=== PATIENT | male | born 1930 ===

== ENCOUNTER 2016-12-30 07:10 | Day surgery (SDC) | payer MEDICARE, OTHER ==
[2016-12-27 09:20] VITALS: BMI 24.7
[2016-12-30] MEDS ORDERED: Iodixanol 320 MG/ML 200 ML BOTTLE IV ONE (07:47)
[2016-12-30] MEDS ORDERED: Iodixanol 320 MG/ML 100 ML BOTTLE IV ONE (07:47)
[2016-12-30] MEDS ORDERED: Midazolam 2 MG/2 ML VIAL ONE (10:02)
[2016-12-30] MEDS ORDERED: Metoprolol 1 mg/ml Inj IVP ONE (10:23)
--- NOTE | 2016-12-30 13:51 | CP.SDSHP ---
Same Day Surgery H & P - History Proposed Procedure: see H and P from office. no changes. - Allergies Allergies: Allergies Penicillins Allergy (Intermediate, Verified 12/27/16 09:18) RASH - Physical Exam Vital Signs: Vital Signs 12/30/16 07:19 Temperature 97.1 F L Pulse Rate 72 Respiratory 18 Rate Blood Pressure 146/62 O2 Sat by Pulse 95 Oximetry Short Stay Discharge - Short Stay Discharge Admitting Diagnosis/Reason for Visit: RULE OUT PVD Disposition: HOME/ ROUTINE
[2016-12-30] MEDS ORDERED: Sodium Chloride 0.9% 500 ML IV SCH (14:00)
[2016-12-30] MEDS ORDERED: Sodium Chloride 0.45% 1,000 ML IV SCH (14:00)
--- NOTE | 2016-12-30 16:47 | OP ---
PROCEDURE DATE: 12/30/2016 PERFORMING PHYSICIAN: Breanne Chairez MD REFERRING PHYSICIAN: Orly Churchill DPM. PROCEDURE PERFORMED: Retrograde access right common femoral artery, selective catheter placement inf rarenal abdominal aorta, abdominal aortography with bilateral iliofemoral runoff, bilateral lower ext remity angiography. INDICATIONS: Claudication. COMPLICATIONS: None. HISTORY: As follows: The patient is an 86-year-old male with a past medical history of hypertension , hypercholesterolemia, coronary artery disease and peripheral vascular disease, who has claudication involving the left lower extremity. The patient is referred for peripheral angiography due to abnor mal ankle brachial index. DESCRIPTION OF PROCEDURE: After obtaining informed consent, the patient was prepped and draped in [facility] sterile fashion. The right groin was anesthetized with 2% lidocaine solution. A 5-Luxembourgish sheath was inserted into the right common femoral artery via modified Seldinger technique. A catheter was positioned in the infrarenal abdominal aorta. Abdominal aortography was performed. All catheters we re then removed and manual pressure was applied to achieve hemostasis. FINDINGS: The infrarenal abdominal aorta is free of aneurysm or dissection. Bilateral renal arterie s arise normally. The patient has extensive eccentric calcification in the iliofemoral system. Ther e is a 40% stenosis of the right common iliac artery. Left common iliac artery has a 50% stenosis. The external iliac arteries have diffuse disease. Eccentric calcification is noted throughout the pr ofunda and superficial femoral arteries. These vessels have diffuse atherosclerosis, but are nonobst ructive. The patient has 2-vessel runoff via the anterior tibial and the posterior tibial artery riana aterally. CONCLUSION: Mild to moderate diffuse peripheral vascular disease. PLAN: The patient will be scheduled for aggressive medical therapy. Breanne Chairez MD cc: [phone] TT: 12/30/2016 16:47:27 sn
[2016-12-30 17:14] VITALS: RESP 20
[2016-12-30 17:16] VITALS: BP 163/58; PULSE 89; TEMP 98.2; O2SAT 97
== END 2016-12-30 17:15 | disposition home or self-care (01) ==
LOC: C.CATHLAB 07:10
PROVIDERS: ATTEND Internal Medicine Cardiovascular Disease
DX: I70.213 Atherosclerosis of native arteries of extremities with intermittent claudication, bilateral legs (principal)
CPT/HCPCS: 36200; 75625; 75716; 82948; C1769; J0360; J1644; J2250; Q9966; Q9967

== ENCOUNTER 2017-04-28 15:28 | Emergency (ER) | payer MEDICARE, OTHER ==
[2017-04-28 15:29] VITALS: BMI 24.7
[2017-04-28 15:46] VITALS: TEMP 98.1
--- NOTE | 2017-04-28 17:13 | C.PDOC ---
History Of Present Illness 86 year old male presents to the ED with complaints of worsening dizziness when standing for the last week. He is compliant with all prescribed medications except for Lisinopril which he takes 5 mg instead of 10 mg because he is concerned his blood pressure is low. Patient denies falls resulting from the dizziness, head trauma, or other complaints at this time. Time Seen by Provider: 04/28/17 16:53 Chief Complaint (Nursing): Weakness/Neurological Deficit History Per: Patient, Family (grandson at bedside) History/Exam Limitations: no limitations Onset/Duration Of Symptoms: Days (1 week ) Current Symptoms Are (Timing): Still Present Activity At Onset Of Symptoms: Standing Seizure Or Post-ictal Symptoms: None Fall Associated With With Symptoms: No Recent travel outside of the [place]: No Additional History Per: Prior Records Past Medical History Reviewed: Historical Data, Nursing Documentation, Vital Signs Vital Signs: Last Vital Signs Temp 98.1 F 04/28/17 19:05 Pulse 78 04/28/17 19:05 Resp 20 04/28/17 19:05 BP 190/80 H 04/28/17 19:05 Pulse Ox 97 04/28/17 19:37 - Medical History PMH: Asthma, Gastritis, HTN, Hypercholesterolemia, Hypothyroidism, Osteoporosis , Peripheral Edema, Chronic Kidney Disease Surgical History: CABG (1998), Carotid Endarterectomy Denies: Pacemaker - [facility] Procedures ANGIOPLASTY OF OTHER NON-CORONARY VESSEL(S) (02/05/15) CLOSED [ENDOSCOPIC] BIOPSY OF LARYNX (08/20/14) CONTR PULMON ARTERIOGRAM (04/25/15) CONTRAST AORTOGRAM (02/05/15) CONTRAST ARTERIOGRAM-LEG (02/05/15) CORONAR ARTERIOGR-2 CATH (04/25/15) CYSTOSCOPY NEC (01/07/15) HEAD & NECK ENDARTER NEC (04/25/13) LEFT HEART CARDIAC CATH (06/04/13) LT HEART ANGIOCARDIOGRAM (06/04/13) MONITORING OF CARDIAC OUTPUT BY OTHER TECHNIQUE (04/25/15) PROCEDURE ON SINGLE VESSEL (02/05/15) PULMON ART WEDGE MONITOR (04/25/15) RT & LT HEART ANGIOCARD (04/25/15) RT/LEFT HEART CARD CATH (04/25/15) Family History: States: Diabetes - Social History Hx Alcohol Use: No Hx Substance Use: No - Immunization History Hx Tetanus Toxoid Vaccination: Yes Hx Influenza Vaccination: Yes Hx Pneumococcal Vaccination: Yes Review Of Systems Constitutional: Negative for: Fever, Chills Cardiovascular: Negative for: Chest Pain, Palpitations Respiratory: Negative for: Cough, Shortness of Breath Gastrointestinal: Negative for: Nausea, Vomiting, Abdominal Pain, Diarrhea Neurological: Positive for: Dizziness. Negative for: Weakness, Numbness Physical Exam - Physical Exam Appears: Non-toxic, No Acute Distress, Other (Patient is elderly man) Head: Atraumatic Eye(s): bilateral: Normal Inspection, PERRL, EOMI Ear(s): Bilateral: Other (patient is hard of hearing ) Oral Mucosa: Moist Neck: Supple Chest: Symmetrical, No Deformity Cardiovascular: Rhythm Regular Respiratory: Normal Breath Sounds, No Rales, No Rhonchi, No Stridor, No Wheezing Gastrointestinal/Abdominal: Soft, No Tenderness, No Distention, No Guarding, No Rebound Extremity: No Tenderness, No Calf Tenderness, Capillary Refill (good capillary refill, less than two seconds ) Neurological/Psych: Oriented x3, Normal Speech, Normal Cognition, Normal Cranial Nerves, Normal Motor, Normal Sensation, Normal Reflexes ED Course And Treatment - Laboratory Results Result Diagrams: 04/28/17 17:20 04/28/17 17:20 Lab Interpretation: Normal (trop neg.) ECG: Interpreted By Pa ECG Rhythm: Sinus Rhythm ECG Interpretation: Normal Rate From EC O2 Sat by Pulse Oximetry: 97 (room air ) Pulse Ox Interpretation: Normal - Radiology CXR: Interpreted by Pa CXR Interpretation: Yes: No Acute Disease Progress Note: Orthostatics performed by this MD @ eval @ 1700: Supine: 215/113 , HR 85. Sittin/87, HR 85. Standing 148/70, HR 86. 1800: d/w Dr. Lucas, reviewed vascular issues history and agrees pt properly medicated (ASA , Plavix) and without new symptoms, ok to d/c home. 1800: d/w Dr. Mcnamara- PMD- exam, orthostatics, and normal eval reviewed. Understands pt taking Lisinopril 5 daily (1/2 the 10 mg prescribed) and agrees pt may be increased to lisinoprl 10 daily and f/u in office 1 week. Medical Decision Making Medical Decision Making: mild Orthostasis without hypotension Pt's baseling BP ELEVATED due to poor bp med compliance. increased Lisinopril from 5->10 daily. otherwise well studied and properly medicated. cleared to d/c home by Vascular and PMD Meds reviewed- no meds which provoke orthostasis, no alpha blockers, no peripheral vasodilators. Disposition Doctor Will See Patient In The: Office Counseled Patient/Family Regarding: Studies Performed, Diagnosis - Disposition Referrals: Roderick Lucas Jr., MD [Staff Provider] - Ozzie Castellanos MD [Medical Doctor] - Disposition: HOME/ ROUTINE Disposition Time: 18:47 Condition: GOOD Additional Instructions: Sigue tomando gillis Lisinopril: Aumenta de 5 mg a 10 mg diario. (antonio en la manana) Sigue lo demas de faraz meds martha normal. Orthostasis: Que baja mucho gillis pression quando para rapido De acostado, debe sentar en la silla un minuto, lluego puede parar y caminar Sigue con Dr. Mcnamara en micheal semana para re-evaluar faraz signos vitales. Instructions: Lightheadedness (ED) Forms: [place] (Romansh) Print Language: GREEK - Clinical Impression Clinical Impression: Dizziness, Orthostasis - Scribe Statement The provider has reviewed the documentation as recorded by the Scribe Chichi Kat All medical record entries made by the Scribe were at my direction and personally dictated by me. I have reviewed the chart and agree that the record accurately reflects my personal performance of the history, physical exam, medical decision making, and the department course for this patient. I have also personally directed, reviewed, and agree with the discharge instructions and disposition.
[2017-04-28 17:24] LABS: BASO # 0.1 K/uL (0.0-0.2); BASO % 1.1 % (0.0-2.0); EOS # 0.5 K/uL (0.0-0.7); EOS % 6.8 % (0.0-4.0); HEMATOCRIT 35.6 % (35.0-51.0); LYMPH # 1.4 K/uL (1.0-4.3); LYMPH % 18.6 % (20.0-40.0); MEAN CELL VOLUME 87.4 fL (80.0-94.0); MEAN CORPUSCULAR HEMOGLOBIN 28.6 pg (27.0-31.0); MEAN CORPUSCULAR HGB CONC 32.8 g/dL (33.0-37.0); MEAN PLATELET VOLUME 8.9 fL (7.2-11.7); MONO # 0.6 K/uL (0.0-0.8); MONO % 8.6 % (0.0-10.0); RED CELL DISTRIBUTION WIDTH 14.7 % (11.5-14.5); WHITE BLOOD COUNT 7.4 K/uL (4.8-10.8)
[2017-04-28 17:42] LABS: POTASSIUM 4.8 mmol/L (3.6-5.2)
[2017-04-28 17:44] LABS: ALB/GLOB RATIO 1.2 (1.0-2.1); BILIRUBIN,TOTAL 0.5 mg/dL (0.2-1.3); TOTAL PROTEIN 6.6 g/dL (6.3-8.3); URINE BILIRUBIN NEGATIVE (NEGATIVE); URINE BLOOD NEGATIVE (NEGATIVE); URINE COLOR Yellow (YELLOW); URINE GLUCOSE (UA) NORMAL (Normal); URINE KETONE NEGATIVE (NEGATIVE); URINE LEUKOCYTE ESTERASE NEG Leu/uL (Negative); URINE PROTEIN NEGATIVE (NEGATIVE); URINE UROBILINOGEN NORMAL mg/dL (0.2-1.0)
[2017-04-28 17:45] LABS: CALCIUM 8.5 mg/dl (8.6-10.4); WBC URINE 2 /hpf (0-5)
[2017-04-28 17:56] LABS: TROPONIN I 0.016 ng/mL (0.00-0.120)
--- NOTE | 2017-04-28 18:16 | RAD ---
HISTORY: SOB COMPARISON: Chest x-ray performed 07/23/15 TECHNIQUE: Chest, one view. FINDINGS: LUNGS: Subsegmental atelectasis, right lung base. Please note that chest x-ray has limited sensitivity for the detection of pulmonary masses. PLEURA: No significant pleural effusion identified. No definite pneumothorax . CARDIOVASCULAR: Median sternotomy wires with evidence of CABG. Heart size appears within normal limits. Dense atherosclerotic calcifications of the aortic knob. OSSEOUS STRUCTURES: Degenerative changes. Acromioclavicular arthropathy. VISUALIZED UPPER ABDOMEN: Elevation of the right hemidiaphragm. OTHER FINDINGS: None. IMPRESSION: Subsegmental atelectasis, right lung base.
[2017-04-28 19:05] VITALS: BP 190/80; PULSE 78; RESP 20
[2017-04-28 19:37] VITALS: O2SAT 97
--- NOTE | 2017-05-01 17:52 | CARD ---
APPROVED REPORT EKG Measurement Heart [id number] ND [id number] <Conclusion> Normal sinus rhythm Right bundle branch block Abnormal ECG
== END 2017-04-28 19:06 | disposition home or self-care (01) ==
LOC: C.ER 15:28
DX: R42 Dizziness and giddiness (principal)

== ENCOUNTER 2018-08-10 06:26 | Observation (INO) | payer MEDICARE, MEDICAID ==
[2018-07-25 10:53] VITALS: BMI 22.8
[2018-08-10] MEDS ORDERED: Iodixanol 320 MG/ML 200 ML BOTTLE IV ONE (08:43)
[2018-08-10] MEDS ORDERED: Propofol 10 mg/ml Inj (20 ML) ONE (09:12)
[2018-08-10] MEDS ORDERED: Vancomycin 1 g Inj ONE (10:23)
--- NOTE | 2018-08-10 11:15 | PCM.SURG1 ---
Surgeon's Initial Post Op Note - Surgeon's Notes Surgeon: ant Automobile Painter: 0 Type of Anesthesia: IV Sedation Anesthesia Administered By: han Pre-Operative Diagnosis: left subclavian occlusion/stenosis Operative Findings: severe stenosis proximal and distal to vertebral artery Post-Operative Diagnosis: same Operation Performed: arch aortogram. selective catherization of left subclavian artery. balloon angioplasty and stenting of left subclavian artery. manual compression right groin Specimen/Specimens Removed: 0 Estimated Blood Loss: EBL {In ML}: 0 Blood Products Given: N/A Drains Used: No Drains Post-Op Condition: Good Date of Surgery/Procedure: 08/10/18 Time of Surgery/Procedure: 11:15
[2018-08-10] MEDS ORDERED: Dextrose 5%/0.45% NS 1,000 ML IV SCH (11:30)
[2018-08-10] MEDS: Cilostazol 50 mg Tab UD PO SCH (21:33)
[2018-08-10] MEDS ORDERED: (Novolin R) Insulin Human Regular 100 units/ml vial SC ONE (21:40)
[2018-08-10] MEDS ORDERED: Dextrose 50% SYRINGE Inj (50 ml) IV PRN (21:48)
[2018-08-10] MEDS ORDERED: Glucagon Recombinant 1 mg Inj IM PRN (21:48)
[2018-08-10] MEDS ORDERED: Insulin Detemir 100 units/ml Vial (Levemir) SC SCH (22:00)
--- NOTE | 2018-08-10 22:53 | CP.PCM.CON ---
History of Present Illness - History of Present Illness History of Present Illness: 87 yo M w/ PAD, s/p carotid endarterectomy, DM, htn, CAD s/p CABG (1998), s/p bladder resection for tumor, chronic mild hyperkalemia and CKD IIIB, found to have L subclavian artery stenosis on outpatient workup, underwent stenting of the same earlier today, nephrology being consulted for advanced CKD care; Patient seen post-op; procedure done under [place]; patient with some nausea/vomiting subsequently, symptoms improved at the time of encounter; otherwise is alert, denies any complaints; appetite had been well prior to procedure; no GI symptoms reported; Patient had been having complaint of dizziness going on chronically; started on florinef several months ago due to orthostatic drops in BP, symptoms subseque ntly improved to some degree; had been having L sided arm pain recently and underwent workup revealing subclavian artery stenosis; Review of Systems - Constitutional Constitutional: As Per HPI. absent: Anorexia - EENT Additional comments: s/p procedure under [place],ETT out; - Cardiovascular Cardiovascular: Claudication. absent: Palpitations - Respiratory Respiratory: absent: Dyspnea - Gastrointestinal Gastrointestinal: As Per HPI - Genitourinary Additional comments: slow stream, needing to push - Musculoskeletal Musculoskeletal: As Per HPI - Neurological Neurological: As Per HPI - Endocrine Additional Comments: erratic sugar control Past Patient History - Past Medical History & Family History Past Medical History?: Yes - Past Social History Smoking Status: Former Smoker - CARDIAC Hx Cardiac Disorders: Yes (CAD) - PULMONARY Hx Respiratory Disorders: Yes Other/Comment: sob - NEUROLOGICAL Hx Neurological Disorder: No - HEENT Hx HEENT Problems: Yes - RENAL Hx Chronic Kidney Disease: Yes - ENDOCRINE/METABOLIC Hx Diabetes Mellitus Type 1: Yes Hx Hypothyroidism: Yes - HEMATOLOGICAL/ONCOLOGICAL Hx Blood Disorders: Yes - INTEGUMENTARY Hx Dermatological Problems: No - MUSCULOSKELETAL/RHEUMATOLOGICAL Hx Musculoskeletal Disorders: Yes - GASTROINTESTINAL Hx Gastrointestinal Disorders: Yes - GENITOURINARY/GYNECOLOGICAL Hx Genitourinary Disorders: Yes - PSYCHIATRIC Hx Psychophysiologic Disorder: No - SURGICAL HISTORY Hx Surgeries: Yes Hx Angioplasty: Yes Hx Herniorrhaphy: Yes Hx Open Heart Surgery: Yes - ANESTHESIA Hx Anesthesia: Yes Hx Anesthesia Reactions: No Hx Malignant Hyperthermia: No Has any member of the family had a problem w/ anesthesia?: No Meds Allergies/Adverse Reactions: Allergies Allergy/AdvReac Type Severity Reaction Status Date / Time Penicillins Allergy Intermediate RASH Verified 07/25/18 10:53 - Medications Medications: Current Medications Aspirin (Aspirin Chewable) 81 mg PO DAILY [facility] Chlorthalidone (Hygroton) 25 mg PO DAILY [facility] Cilostazol (Pletal) 50 mg PO BID [facility] Last Admin: 08/10/18 21:33 Dose: 50 mg Clopidogrel Bisulfate (Plavix) 75 mg PO DAILY [facility] Dextrose (Dextrose 50% Inj) 0 ml IV STAT PRN; Protocol PRN Reason: Hypoglycemia Protocol Dextrose (Glutose 15) 0 gm PO ONCE PRN; Protocol PRN Reason: Hypoglycemia Protocol Glucagon (Glucagen Diagnostic Kit) 0 mg IM STAT PRN; Protocol PRN Reason: Hypoglycemia Protocol Dextrose (Dextrose 5% In Water 1000 Ml) 1,000 mls @ 0 mls/hr IV .Q0M PRN; Protocol PRN Reason: Hypoglycemia Protocol Insulin Aspart (Novolog) 0 unit SC Q4 GILBERTO; Protocol Insulin Detemir (Levemir) 10 unit SC HS [facility] Last Admin: 08/10/18 22:02 Dose: 10 u Levothyroxine Sodium (Synthroid) 125 mcg PO DAILY [facility] Lisinopril (Zestril) 10 mg PO DAILY [facility] Multivitamins (Hexavitamin) 1 tab PO DAILY [facility] Physical Exam - Constitutional Appears: Non-toxic, No Acute Distress - Eye Exam Eye Exam: Normal appearance - ENT Exam ENT Exam: Mucous Membranes Moist - Respiratory Exam Respiratory Exam: Clear to Auscultation Bilateral. absent: Respiratory Distress - Cardiovascular Exam Cardiovascular Exam: RRR, +S1, +S2. absent: Gallop, Rubs - GI/Abdominal Exam GI & Abdominal Exam: Soft. absent: Distended, Tenderness - Exam Exam: absent: Bladder Distension - Extremities Exam Additional comments: no leg edema; warm distal ext; - Neurological Exam Neurological exam: Alert - Psychiatric Exam Psychiatric exam: Normal Affect, Normal Mood - Skin Skin Exam: Normal Color, Warm Results - Vital Signs Recent Vital Signs: Last Vital Signs Temp Pulse Resp BP Pulse Ox 96 08/10/18 22:36 - Labs Result Diagrams: 08/11/18 07:11 Labs: Laboratory Results - last 24 hr 08/10/18 08/10/18 08/10/18 08:35 13:37 21:12 POC Glucose (mg/dL) 198 H 298 H 482 H* Assessment & Plan (1) CKD (chronic kidney disease), stage IV Status: Acute (2) Hypertensive chronic kidney disease Status: Acute (3) Prostate enlargement Status: Acute (4) Orthostatic hypotension Status: Acute (5) Hyperkalemia Status: Acute - Assessment and Plan (Free Text) Assessment: 1- CKD IIIB/IV - Proteinuric kidney disease likely secondary to DM as well severe vascular disease; renal function had been relatively stable; tolerated CTA recently without any worsening of renal function; nevertheless, patient is s/p interventional procedure and is at increased risk for DILCIA; will monitor with chem panel in am; 2- Orthostatic hypotension - Possible autonomic dysfunction; started on florinef with improvement in symptoms; -continue florinef 0.1 mg qMWF; 3- Hypertensive CKD - BP controlled; had been on amlodipine 5 mg daily and losartan 25 mg daily, continue same; 4- Hyperkalemia - Had been on veltassa (potassium exchange resin, not available in hospital); florinef helping; if K elevated, will give kayexalate; 5- Prostate enlargement - Patient symptomatic; on flomax and finasteride, will continue as outpatient; 6- Anemia of CKD - Hgb at goal as of recent labs, will monitor; Thank you for this referral, we will continue to follow closely;
[2018-08-10 22:56] VITALS: RESP 20
[2018-08-10] MEDS: (Novolog) Insulin Aspart, Recombinant 100 u/ml 10 ml vial SC SCH (23:14)
[2018-08-11] MEDS ORDERED: (Novolog) Insulin Aspart, Recombinant 100 u/ml 10 ml vial SC SCH
[2018-08-11] MEDS: (Novolog) Insulin Aspart, Recombinant 100 u/ml 10 ml vial SC SCH ×4 (00:05→12:10)
--- NOTE | 2018-08-11 07:02 | VAS ---
DATE: 08/10/2018 PREOPERATIVE DIAGNOSIS: Left subclavian occlusion stenosis. POSTOPERATIVE DIAGNOSIS: Left subclavian occlusion stenosis. PROCEDURE PERFORMED: Arch aortogram and selective catheterization of the left subclavian artery, balloon angioplasty and the deployment of two 8-mm balloon expandable stents in the left subclavian artery. SURGEON: Roderick Lucas Jr., MD INDICATIONS: The patient is an 87-year-old man who has had multiple interventions in the past including carotid endarterectomy. He complains of recent dizziness. Recent studies including outpatient imaging demonstrated that there was a high-grade stenosis in the subclavian artery and in addition there was antegrade flow in the vertebral artery on the left side. OPERATIVE FINDINGS: 1. There was a high-grade stenosis at the origin of the left subclavian artery. 2. There was also high-grade stenosis just underneath the clavicle. There were tandem stenoses. The vertebral artery was patent and after completion, the angiogram showed that the vertebral body was still patent. DESCRIPTION OF PROCEDURE: The patient was given local anesthesia. Using ultrasound guidance and micropuncture technique, the right common femoral artery was punctured. Under fluoroscopic control, the guidewire was advanced centrally. There was extensive tortuosity on the iliac vessels on the right side. Nonetheless, eventually we placed the catheter in the artery and we carried out an arch aortogram. Subsequent to this, using a Polo catheter, we selected and catheterized the left subclavian artery, advanced the guidewire across this with some difficulty and eventually deployed both the 4-mm balloon enough to create a channel to allow for the passage of the stents and then eventually deploy the stents here. The completion angiogram showed brisk antegrade flow in the subclavian artery. It showed no residual stenosis in the subclavian artery in either of the two areas where there was stenosis. One stenosis was proximal and one stenosis was distal to the origin of the vertebra. After obtaining access and obtaining the diagnostic arteriogram, a guidewire was advanced into the left subclavian artery and the lesions were crossed. This was subsequently changed for Nicole wire. Heparin was given. A #7-Yemeni sheath was positioned at the origin and we carried out more diagnostic arteriograms for placement. We initially had to use a 4-mm balloon to allow for passage of the stents. After these were secured in position, we then dilated these with an 8-mm balloon after their deployment so that there was good apposition throughout. The stent extended proximally about 2 mm into the aortic arch. Initial film showed there were tandem two high-grade stenoses, one in the proximal portion before the vertebral and one afterwards and in final completion films after the deployment of stents, these were widely patent. No residual significant stenosis. Pressure was then applied to the groin. There was some telescoping of the iliac artery and there was tortuosity over the sheath and we did not use the closure device. Blood loss of the procedure was less than 50 mL. OPERATION CARRIED OUT: Arch aortogram and selective catheterization of the left subclavian artery with balloon angioplasty and stenting using two 8-mm balloon expandable stents. Roderick Lucas Jr., MD MTDLesly
[2018-08-11 07:30] LABS: ALB/GLOB RATIO 1.1 (1.0-2.1); ALBUMIN 2.9 g/dL (3.5-5.0); CALCIUM 8.2 mg/dl (8.6-10.4)
[2018-08-11] MEDS: Cilostazol 50 mg Tab UD PO SCH (09:27)
[2018-08-11] MEDS ORDERED: Levothyroxine 125 MCG TAB PO SCH (10:00)
[2018-08-11] MEDS ORDERED: Multiple Vitamins Tab PO SCH (10:00)
--- NOTE | 2018-08-11 11:27 | CP.PCM.DIS ---
Provider - Provider Date of Admission: 08/10/18 11:22 Attending physician: Roderick Lucas Jr, MD Consults: 08/10/18 11:17 Physician Consult Routine Comment: Consulting Provider: Brandon Iglesias Consulting Physician: Brandon Iglesias Reason for Consult: elevated BUN Time Spent in preparation of Discharge (in minutes): 30 Diagnosis - Discharge Diagnosis (1) Stenosis of left subclavian artery Status: Resolved Hospital Course - Lab Results Lab Results: Most Recent Lab Values Sodium 135 mmol/L (132-148) 08/11/18 07:11 Potassium 4.9 mmol/L (3.6-5.2) 08/11/18 07:11 Chloride 103 mmol/L (98-107) 08/11/18 07:11 Carbon Dioxide 24 mmol/L (22-30) 08/11/18 07:11 Anion Gap 13 (10-20) 08/11/18 07:11 BUN 37 mg/dL (9-20) H 08/11/18 07:11 Creatinine 2.1 mg/dL (0.8-1.5) H 08/11/18 07:11 Est GFR ( Amer) 37 08/11/18 07:11 Est GFR (Non-Af Amer) 30 08/11/18 07:11 POC Glucose (mg/dL) 118 mg/dL (65-110) H 08/11/18 07:51 Random Glucose 121 mg/dL (75-110) H 08/11/18 07:11 Calcium 8.2 mg/dl (8.6-10.4) L 08/11/18 07:11 Total Bilirubin 0.3 mg/dL (0.2-1.3) 08/11/18 07:11 AST 19 U/L (17-59) 08/11/18 07:11 ALT 23 U/L (21-72) 08/11/18 07:11 Alkaline Phosphatase 50 U/L (38-126) 08/11/18 07:11 Total Protein 5.6 g/dL (6.3-8.3) L 08/11/18 07:11 Albumin 2.9 g/dL (3.5-5.0) L D 08/11/18 07:11 Globulin 2.7 gm/dL (2.2-3.9) 08/11/18 07:11 Albumin/Globulin Ratio 1.1 (1.0-2.1) 08/11/18 07:11 - Hospital Course Hospital Course: Pt is an 87M who presented to with left subclavian occlusion/stenosis. He was taken for an arch aortogram with selective catherization of Left subclavian artery, balloon angioplasty & stenting of L subclavian artery via the R groin. Pt doing well this AM and denies pain at puncture site in groin. He admits to numbness and tingling in his legs due to his DM, which has been a chronic problem he states. No other complaints at this time. Pt is clear for discharge with outpt f/u. Discharge Exam - Head Exam Head Exam: ATRAUMATIC, NORMOCEPHALIC - Eye Exam Eye Exam: Normal appearance - ENT Exam ENT Exam: Mucous Membranes Moist - Respiratory Exam Respiratory Exam: NORMAL BREATHING PATTERN - Cardiovascular Exam Cardiovascular Exam: RRR - GI/Abdominal Exam GI & Abdominal Exam: Soft. absent: Distended - Extremities Exam Additional comments: right groin with dressing, clean/dry/intact - Neurological Exam Neurological exam: Alert, Oriented x3 - Skin Skin Exam: Dry, Warm Discharge Plan - Follow Up Plan Condition: GOOD Disposition: HOME/ ROUTINE
[2018-08-11 16:29] VITALS: BP 161/56; PULSE 94; TEMP 98.2; O2SAT 96
--- NOTE | 2018-08-11 18:38 | CP.PCM.PN ---
Subjective - Date & Time of Evaluation Date of Evaluation: 08/11/18 Time of Evaluation: 12:00 - Subjective Subjective: Patient reports feeling well; no sob; tolerating diet; no more vomiting; Objective - Vital Signs/Intake and Output Vital Signs (last 24 hours): Temp Pulse Resp BP Pulse Ox 98.2 F 94 H 20 161/56 H 96 08/11/18 16:28 08/11/18 16:28 08/11/18 16:28 08/11/18 16:28 08/11/18 16:28 Intake and Output: 08/11/18 08/11/18 06:59 18:59 Intake Total 520 450 Balance 520 450 - Labs Labs: 08/11/18 07:11 - Constitutional Appears: Non-toxic, No Acute Distress - Eye Exam Eye Exam: Normal appearance - Respiratory Exam Respiratory Exam: Clear to Ausculation Bilateral. absent: Respiratory Distress - Cardiovascular Exam Cardiovascular Exam: RRR, +S1, +S2 - GI/Abdominal Exam GI & Abdominal Exam: Soft. absent: Distended, Tenderness - Extremities Exam Additional comments: no leg edema; - Neurological Exam Neurological Exam: Alert, Awake - Psychiatric Exam Psychiatric exam: Normal Mood. absent: Agitated - Skin Skin Exam: Warm. absent: Cyanosis Assessment and Plan (1) CKD (chronic kidney disease), stage IV Assessment & Plan: Renal function at baseline; stable volume and electrolyte status; patient ok for d/c home, will f/u with blood work as outpatient on Tuesday; Status: Chronic (2) Hypertensive chronic kidney disease Assessment & Plan: BP controlled; continue amlodipine 5 mg daily; Status: Chronic (3) Orthostatic hypotension Assessment & Plan: Continue on florinef 0.1 mg daily; Status: Chronic (4) Hyperkalemia Assessment & Plan: Holding ARB for now, will restart as outpatient along with veltassa; Status: Chronic (5) Prostate enlargement Status: Chronic
== END 2018-08-11 16:56 | disposition home or self-care (01) ==
LOC: C.SPRAD 06:26 → C.9S 11:22 → C.3T 19:31
PROVIDERS: ADMIT Surgery Vascular Surgery; ATTEND Surgery Vascular Surgery
DX: I77.1 Stricture of artery (principal); E10.22 Type 1 diabetes mellitus with diabetic chronic kidney disease; Z87.891 Personal history of nicotine dependence; I25.10 Atherosclerotic heart disease of native coronary artery without angina pectoris; E03.9 Hypothyroidism, unspecified; N40.0 Benign prostatic hyperplasia without lower urinary tract symptoms; E87.5 Hyperkalemia; I12.9 Hypertensive chronic kidney disease with stage 1 through stage 4 chronic kidney disease, or unspecified chronic kidney disease; I95.1 Orthostatic hypotension; N18.4 Chronic kidney disease, stage 4 (severe); I82.B12 Acute embolism and thrombosis of left subclavian vein; I70.8 Atherosclerosis of other arteries; D63.1 Anemia in chronic kidney disease; Z79.4 Long term (current) use of insulin
CPT/HCPCS: 36415; 80053; 82948; G0378; J1644; J2405; J2704; J3010; Q9966

== ENCOUNTER 2018-11-28 09:58 | Outpatient (CLI) | payer MEDICARE, MEDICAID | END 2018-11-28 09:59 | disposition home or self-care (01) | LOC: C.CTH 09:59 ==

== ENCOUNTER 2019-01-08 07:15 | Outpatient (CLI) | payer MEDICARE, MEDICAID | END 2019-01-08 07:16 | disposition home or self-care (01) | LOC: C.MRIC 07:16 | DX: R51 Headache (principal) ==